=== PATIENT | male | born 1945 | race Caucasian/White ===

== ENCOUNTER 2016-06-25 12:39 | Emergency (ER) | payer MEDICARE, OTHER ==
[2016-06-25] MEDS ORDERED: DILAUDID 1 MG/ML AMP ONE (16:02)
== END 2016-06-25 17:10 | disposition home or self-care (01) ==
LOC: ER 12:39
CPT/HCPCS: 36415 ×2; 70450 ×2; 71010 ×2; 72100 ×2; 72125 ×2; 80053 ×2; 85025 ×2; 85610 ×2; 85730 ×2; 96374 ×2; 99285; J1170